=== PATIENT | male | born 1970 | race Caucasian/White ===

== ENCOUNTER 2017-05-02 16:11 | Emergency (ER) | payer OTHER, SELFPAY ==
[2017-05-02 16:11] VITALS: BP 124/62; PULSE 97; RESP 16; TEMP 36.1; O2SAT 95; BMI 30.2
--- NOTE | 2017-05-02 16:30 | RAD_ITS ---
STUDY: X-RAY CHEST REASON FOR EXAM: Male, 46 years old. Cough. TECHNIQUE: Frontal and lateral views of the chest. COMPARISON: None. FINDINGS: The lungs are clear and expanded. There is no demonstrated pleural abnormality. Normal size heart. Normal mediastinum and tarun. Normal visualized pulmonary arteries. Normal visualized aortic arch and descending thoracic aorta. Normal visualized thoracic spine. Normal visualized ribs, clavicles, and shoulders. There is no demonstrated abnormality of the visualized soft tissue structures of the upper abdomen. RAD/Chest PA and Lateral IMPRESSION: Normal x-ray examination of the chest. Electronically Signed: Burak Gallardo MD at 17:04 EDT , Service support ,
--- NOTE | 2017-05-02 16:33 | ED.VISSUMM ---
- ER Visit Summary Date of Service: 05/02/17 Chief Complaint: Cough History of Present Illness: The patient is a 46 M who states for the past week he has had a cough. He notes coughing fits and near posttussive emesis. He denies any fever. He notes a runny nose. No sore throat or earaches. No rashes. No chest pain. Patient states he quit smoking in 2002 but prior to that was a 3 pack a day smoker. His father from complications of pulmonary fibrosis. Patient has no history of asthma or other pulmonary diseases. Physical Examination: Afebrile vital signs are stable Gen: Well-nourished well-developed Head: Normocephalic atraumatic Eyes: Perrl EOMI ENT: TMs clear nasal congestion moist mucous membranes Neck: Supple no lymphadenopathy no JVD nontender CVS: Regular rate rhythm no murmurs normal S1-S2 Respiratory: No distress significantly diminished breath sounds bilaterally with end expiratory wheeze and rhonchi. Chest nontender Abdomen: Soft nontender nondistended normal bowel sounds no masses Back: Nontender Extremity: Nontender no edema Skin: Normal color no rash Neuro: alert orientated ?3 CN II-XII intact normal strength sensation reflexes gait cerebellar Psych: Normal affect normal mood Test Results: Chest x-ray was obtained. This did not demonstrate infiltrate. Emergency Department Course and Treatment: Patient received breathing treatments. Believe this to be a viral bronchitis with bronchospasm. The patient will be discharged home with albuterol MDI and prednisone. He was advised that his blood sugars will rise some on the prednisone. Given his 3 pack a day habit before he quit and now with his episode of wheezing he may wish to have pulmonary function testing done. He is asked for the name of a local [employer]. He was advised that his family doctor may be able to order some of the testing before he sees a [employer]. Impression: 1. Acute bronchitis with bronchospasm This note was generated with [employer] dictation software. It may contain incorrect words, spelling, and punctuation that were not noted in review of the chart prior to signing ED Disposition - Plan for ED Patient: Disposition: Home or Assisted Living Chief Complaint: Cough Instructions: Acute Bronchitis, ED Wheezing Prescriptions: Albuterol Inhaler [Ventolin Hfa] 3 puff INHALATION Q4H PRN PRN #1 inhaler PRN Reason: Wheezing Prednisone [Deltasone] 60 mg PO DAILY #15 tab Referrals: Bernardino Bello DO [STAFF PHYSICIAN] - (call if you would like to see a [employer]) Angella Rojo MD [Primary Care Provider] - 1 Week
[2017-05-02 16:47] VITALS: PULSE 94; RESP 20
[2017-05-02] MEDS: Albuterol 2.5 MG/3 ML VIAL.NEB. INHALATION (16:47)
[2017-05-02] MEDS: Ipratropium/Albuterol Sulfate 3 ML AMPUL.NEB INHALATION (16:48)
[2017-05-02 17:20] VITALS: PULSE 100; RESP 20; O2SAT 95
== END 2017-05-02 17:20 | disposition home or self-care (01) ==
PROVIDERS: Emergency Provider Emergency Medicine; Family Provider Internal Medicine; PCP Internal Medicine
DX: J20.9 Acute bronchitis, unspecified (principal); E11.9 Type 2 diabetes mellitus without complications; Z79.84 Long term (current) use of oral hypoglycemic drugs; Z87.891 Personal history of nicotine dependence
CPT/HCPCS: 71046; 94640; 99282